=== PATIENT | female | born 1950 | race Caucasian/White ===

== ENCOUNTER 2020-01-09 09:53 | Emergency (ER) | payer MEDICARE, SELFPAY ==
--- NOTE | 2020-01-09 10:03 | ED.GENADULT ---
HPI - General Adult General Stated complaint: Cough headache throat and ears Time Seen by Provider: 01/09/20 10:18 Source: patient Mode of arrival: ambulatory Limitations: no limitations History of Present Illness HPI narrative: 70-year-old female patient presents to the [facility] with complaints of cold symptoms that started approximately 3 days ago. Patient states that both of her grandchildren recently tested positive for influenza. Patient states she is just overall not been feeling well been feeling very tired, body aches, chills, fevers. Patient states that she did not get a flu shot this year. Patient denies taking anything for her symptoms. Patient states she just had a colonoscopy yesterday. Patient denies any nausea, vomiting or diarrhea. Patient denies any chest pain or shortness of breath at this time. Review of Systems Review of Systems: Narrative: CONSTITUTIONAL: Positive fever, chills, and sweats. EYES: Denies visual changes, redness, or discharge. ENT: Positive rhinorrhea, congestion, sore throat, denies otalgia. CARDIOVASCULAR: Denies chest pain, palpitations, or edema. RESPIRATORY: Positive nonproductive cough, denies dyspnea. GASTROINTESTINAL: Denies abdominal pain, nausea, vomiting, or diarrhea. GENITOURINARY: Denies dysuria or hematuria. SKIN: Denies rash or itching. MUSCULOSKELETAL: Denies back pain, joint pain, or myalgia. NEUROLOGIC: Denies headache, numbness, or weakness. PSYCHIATRIC: Denies anxiety or depression. PMFSH Comments At the time of my signature I agree with nursing past medical history, surgical, social, and family history. There is no relevant family history pertinent to the presenting complaint. Exam Narrative: Exam Narrative: GENERAL: ill-appearing, well-nourished, and in no acute distress. HEAD: Normocephalic, atraumatic. No tenderness noted to frontal maxillary sinuses on palpation. EYES: PERRLA and EOMI. ENT: Nares with erythema and edema noted bilaterally, no rhinorrhea or epistaxis. Mucous membranes moist. Posterior pharynx with no erythema, tonsillar enlargement, exudates or lesions. Bilateral TMs are clear no erythema or foreign bodies in the canal. NECK: Supple. No lymphadenopathy CHEST: Clear to auscultation. No respiratory distress. HEART: Regular rate and rhythm. No murmur heard. Normal peripheral pulses. ABDOMEN: Soft, nontender, nondistended, normal active bowel sounds. EXTREMITIES: Normal range of motion. No edema. SKIN: Warm, dry, no rash. NEURO: No focal deficits. Alert and oriented x3. Course Vital Signs Vital signs: Vital Signs Temperature 38.1 C H 01/09/20 10:10 Pulse Rate 96 01/09/20 10:10 Respiratory Rate 16 01/09/20 10:10 Blood Pressure 157/84 H 01/09/20 10:10 Pulse Oximetry 98 01/09/20 10:10 Temperature 38.1 C H 01/09/20 10:10 Pulse Rate 96 01/09/20 10:10 Respiratory Rate 16 01/09/20 10:10 Blood Pressure 157/84 H 01/09/20 10:10 Pulse Oximetry 98 01/09/20 10:10 Vital signs reviewed. Medical Decision Making Differential Diagnosis Differential Diagnosis: Differential diagnosis: Allergic rhinitis, chronic sinusitis, tonsillitis, acute sinusitis, infectious mononucleosis, seasonal influenza, pertussis, diphtheria, meningococcal disease, viral syndrome, viral bronchitis, RSV. Discussed with patient that she is positive today for influenza A. Discussed with her that since she is outside of the window of the 48 hours we are unable to do any antivirals today discussed with patient that she can treat her symptoms with [id number] Tylenol, Motrin increase her fluids and get plenty rest. Discussed with patient that I would suggest that she stay home for the next couple of days and get plenty of rest. Discussed with patient she can also take [id number] cough and cold medication for her other symptoms and that this will take some time to pass. Discussed with patient if her symptoms worsen and she develops chest pain, shortness of
[2020-01-09 10:10] VITALS: BP 157/84; PULSE 96; RESP 16; TEMP 38.1; O2SAT 98
== END 2020-01-09 10:25 | disposition home or self-care (01) ==
PROVIDERS: Emergency Provider Nurse Practitioner Family
DX: J10.1 Influenza due to other identified influenza virus with other respiratory manifestations (principal)
CPT/HCPCS: 87804; 99213; G0463